=== PATIENT | female | born 1985 | race Caucasian/White ===

== ENCOUNTER 2016-12-11 20:01 | Inpatient (IN) | payer OTHER ==
[~2016-12-11 20:01] MED LIST: Bupivacaine 0.25% 10 ML SDV ONE
[2016-12-11] MEDS ORDERED: Nalbuphine 20 MG/1 ML Amp IVPUSH PRN (20:36)
[2016-12-11] MEDS ORDERED: Sodium Chloride 0.9% 10 ML Syringe FLUSH PRN (20:36)
[2016-12-11] MEDS ORDERED: Ondansetron 4 MG/2 ML SDV IVPUSH PRN ×2 (20:36→21:51)
[2016-12-11] MEDS ORDERED: Oxytocin/Lactated Ringers 10 UNIT/1,000 ML BAG IV SCH ×2 (20:45)
--- NOTE | 2016-12-11 21:39 | PCM.LDHP ---
L&D History of Present Illness - General Date of Service: 12/11/16 Admit Problem/Dx: Patient Status Order with Admit Dx/Problem 12/11/16 20:36 Patient Status [ADT] Routine Admission Diagnosis/Problem Admission Diagnosis/Problem with one fetus in third trimester Source of Information: Patient, Other History Limitations: Reports: No Limitations - History of Present Illness Introduction:: History of present illness: Patient is a 31-year-old 3 para 2001 white female at 40 and 3/7 weeks with an estimated due date of 12/08/2016 presenting for induction of labor. course: Initial visit occurred on 05/17/16 at 10-5 weeks gestation. Last menstrual period, initial ultrasound, and 20-week ultrasound all support an BRITNEY of 12/08/2016 based on patient's LMP. The was complicated by rotator cuff injury due to working out which she saw PT for, early tension headaches, and round ligament pain. 20-week ultrasound showed normal growth and anatomy. Received TDAP 10/10/16. Fundal height growth has been consistent. Pre- weight was 156 lbs, and current weight is 199, a gain of 43 lbs. 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 Menarche onset age 11. Period frequency monthly every 28-30 days. Last menstrual period 03/03/2016 and definite. First resulted in a at 40 weeks on 06/25/12 of a 7 lbs 3 oz female named Judie. Second resulted in a at 40 weeks on 01/26/14 of a 7 lbs 4 oz female named Maliha. Both labors lasted 12 hours, and epidurals were used both times. No complications were associated with either . Labs: Initial labs showed blood type O positive, with a negative antibody screen. HGB was 13.3 and platelets were 184,000. Pap smear was negative. She is rubella immune and RPR nonreactive. Urine culture/screen showed mixed thalia suggestive of contamination. Hepatitis B surface antigen and HIV assays were both negative. Second trimester labs showed a HGB of 12.7 and platelet count of 155,000. One hour GTT performed was at 126. Group B strep screen is negative. Past medical history: 1. Varicosities bilateral legs 2. Anxiety and depression with both pregnancies 3. Seasonal allergies Past surgical history: 1. Oral surgery 2004 2. Breast augmentation 2010 Family history: Mother and father alive and well. Father has colon polyps. One brother alive and well, but has diverticulitis. No bleeding, clotting, or problems in the family. Social history: Lives in [place], [place]. 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 to [employer]. No alcohol, tobacco, or illicit drug use during . Allergies: 1. Penicillins - rash 2. Ceclor - rash 3. Bactrim - rash 4. Augmentin - rash 5. Lactose intolerant Medications: 1. Tylenol 2. Multivitamin 3. Claritin - seasonal allergies Review of systems: HEENT: no headaches or blurry vision Cardiovascular: no chest pain Respiratory: no shortness of breath Abdomen: occasional contractions, no abdominal pain Extremities: no swelling Physical exam: Well-appearing, well-nourished, and in no acute distress VS: Clinic vitals showed a fundal height of 38 cm with vertex presentation, BP 114/75, FHR 125, height 5'10", weight 199. HEENT: no lymphadenopathy, normocephalic, atraumatic Back: nontender to palpation Cardiovascular: regular rate and rhythm, no murmurs Respiratory: clear to auscultation Breast: deferred Abdomen: protuberant with , nontender Extremities and neurological: no distal edema, no tenderness Cervix: 2+/80%/-3 station - Related Data Allergies/Adverse Reactions: Allergies Allergy/AdvReac Type Severity Reaction Status Date / Time amoxicillin trihydrate Allergy Hives Verified 01/25/14 07:19 [From Augmentin] cefaclor [From Ceclor] Allergy Hives Verified 01/25/14 07:19 Penicillins Allergy Hives Verified 01/25/14 07:19 potassium clavulanate Allergy Hives Verified 01/25/14 07:19 [From Augmentin] sulfamethoxazole Allergy Hives Verified 01/25/14 07:19 [From Bactrim] trimethoprim [From Bactrim] Allergy Hives Verified 01/25/14 07:19 Home Medications: Home Meds Vit No.130/Iron/FA [ Tablet] 1 each PO DAILY 01/25/14 [History] Acetaminophen [Tylenol] 650 mg PO Q6H PRN #30 tablet 01/28/14 [Rx] Docusate Sodium [Colace] 100 mg PO BID PRN #20 cap 01/28/14 [Rx] Ibuprofen [Motrin] 600 mg PO Q4H PRN #30 tablet 01/28/14 [Rx] Lanolin [Lansinoh HPA] 1 applic TOP ASDIRECTED PRN #30 crm 01/28/14 [Rx] Social & Family History - Tobacco Use Smoking Status *Q: Never Smoker Second Hand Smoke Exposure: No - Alcohol Use Days Per Week of Alcohol Use: 0 - Recreational Drug Use Recreational Drug Use: No H&P Review of Systems - Review of Systems: Review Of Systems: See Below L&D Exam - Exam Exam: See Below - Patient Data Result Diagrams: 12/11/16 21:00 - Problem List (1) 40 weeks gestation of SNOMED Code(s): 92745231 ICD Code: Z3A.40 - 40 WEEKS GESTATION OF Status: Acute Current Visit: Yes Problem List Initiated/Reviewed/Updated: Yes Orders Last 24hrs: Active Orders 24 hr Category Date Time Status Patient Status [ADT] Routine ADT 12/11/16 20:36 Active Activity as Tolerated [RC] PFP Care 12/11/16 20:36 Active Communication Order [RC] ASDIRECTED Care 12/11/16 20:36 Active Heart Tones [RC] ASDIRECTED Care 12/11/16 20:37 Active Notify Provider [RC] PFP Care 12/11/16 20:36 Active Notify Provider [RC] PRN Care 12/11/16 20:36 Active Peripheral IV Care [RC] . DIRECTED Care 12/11/16 20:37 Active Vital Signs [RC] PER UNIT ROUTINE Care 12/11/16 20:36 Active CBC WITH AUTO DIFF [HEME] Routine Lab 12/11/16 21:00 Received TYPE AND SCREEN [BBK] Routine Lab 12/11/16 21:00 Received Lactated Ringers [Ringers, Lactated] 1,000 ml Med 12/11/16 20:45 Active IV ASDIRECTED Nalbuphine [Nubain] Med 12/11/16 20:36 Active 10 mg IVPUSH Q2H PRN Ondansetron [Zofran] Med 12/11/16 20:36 Active 4 mg IVPUSH Q4H PRN Oxytocin/Lactated Ringers [Pitocin in LR 10 Units/1,000 Med 12/11/16 20:45 Active ML] 10 unit in 1,000 ml IV .CONTINUOUS Oxytocin/Lactated Ringers [Pitocin in LR 10 Units/1,000 Med 12/11/16 20:45 Active ML] 10 unit in 1,000 ml IV TITRATE Sodium Chloride 0.9% [Saline Flush] Med 12/11/16 20:36 Active 10 ml FLUSH ASDIRECTED PRN Electronic Heart Tones Ext w TOCO [WOMSER] Ot 12/11/16 20:36 Ordered Routine Electronic Heart Tones Internal [WOMSER] Per Unit Ot 12/11/16 20:36 Ordered Routine Peripheral IV Insertion Adult [OM.PC] Routine Oth 12/11/16 20:36 Ordered Resuscitation Status Routine Resus Stat 12/11/16 20:36 Ordered Medication Orders Lactated Ringer's (Ringers, Lactated) 1,000 mls @ 100 mls/hr IV ASDIRECTED GASTON Oxytocin/Lactated Ringer's (Pitocin In Lr 10 Units/1,000 Ml) 10 unit in 1,000 mls @ 12 mls/hr IV TITRATE GASTON; 2 MUNITS/MIN PRN Reason: Protocol Oxytocin/Lactated Ringer's (Pitocin In Lr 10 Units/1,000 Ml) 10 unit in 1,000 mls @ 500 mls/hr IV .CONTINUOUS GASTON Nalbuphine HCl (Nubain) 10 mg IVPUSH Q2H PRN PRN Reason: Pain (moderate 4-6) Ondansetron HCl (Zofran) 4 mg IVPUSH Q4H PRN PRN Reason: Nausea/Vomiting Sodium Chloride (Saline Flush) 10 ml FLUSH ASDIRECTED PRN PRN Reason: Keep Vein Open Assessment/Plan Comment:: Assessment: 1. 31-year-old with an BRITNEY of 12/08/16 placing her at 40 and 3/7 weeks presenting for induction of labor. 2. Group B strep negative Plan: 1. Induction of labor with pitocin 2. AROM performed 3. Epidural prn 4. Plans to attempt to nurse
[2016-12-11] MEDS ORDERED: fentaNYL 100 MCG/2 ML SDV EPIDUR PRN (21:51)
[2016-12-11] MEDS ORDERED: ePHEDrine 50 MG/ML SDV IVPUSH PRN (21:51)
--- NOTE | 2016-12-11 21:54 | PCM.PREANE ---
Preanesthetic Assessment - Anesthesia/Transfusion/Family Hx Anesthesia History: Prior Anesthesia Without Reaction Family History of Anesthesia Reaction: No Transfusion History: No Prior Transfusion(s) Intubation History: Unknown - Review of Systems General: No Symptoms Pulmonary: No Symptoms Cardiovascular: No Symptoms Gastrointestinal: No Symptoms Neurological: No Symptoms (CTS with /L4 herniated disk back injury noted: prior epidurals right side gets more numb.) Other: Reports: Easy Bruising, Sinus Problem (seasonal allergies), Depression, Anxiety - Physical Assessment NPO Status Date: 12/11/16 NPO Status Time: 18:30 Pulse: 68 O2 Sat by Pulse Oximetry: 99 Respiratory Rate: 14 Blood Pressure: 145/71 Temperature: 37.4 C Height: 1.78 m Weight: 89.811 kg ASA Class: 2 Mental Status: Alert & Oriented x3 Airway Class: Mallampati = 2 Dentition: Reports: Normal Dentition, Caries Thyro-Mental Finger Breadths: 3 Mouth Opening Finger Breadths: 3 ROM/Head Extension: Full Lungs: Clear to Auscultation, Normal Respiratory Effort Cardiovascular: Regular Rate, Regular Rhythm, No Murmurs - Lab Values: Laboratory Last Values WBC 8.00 K/mm3 (3.98-10.04) 12/11/16 21:00 RBC 3.57 M/mm3 (3.98-5.22) L 12/11/16 21:00 Hgb 11.1 gm/L (11.2-15.7) L 12/11/16 21:00 Hct 30.8 % (34.1-44.9) L 12/11/16 21:00 MCV 86.3 fl (79.4-94.8) 12/11/16 21:00 MCH 31.1 pg (25.6-32.2) 12/11/16 21:00 MCHC 36.0 g/dl (32.2-35.5) H 12/11/16 21:00 RDW Std Deviation 39.1 fL (36.4-46.3) 12/11/16 21:00 Plt Count 157 K/mm3 (182-369) L 12/11/16 21:00 MPV 10.0 fl (9.4-12.3) 12/11/16 21:00 Neut % (Auto) 68.1 % (34.0-71.1) 12/11/16 21:00 Lymph % (Auto) 21.4 % (19.3-51.7) 12/11/16 21:00 Delta % (Auto) 9.1 % (4.7-12.5) 12/11/16 21:00 Eos % (Auto) 0.9 (0.7-5.8) 12/11/16 21:00 Baso % (Auto) 0.1 % (0.1-1.2) 12/11/16 21:00 Neut # (Auto) 5.45 K/mm3 (1.56-6.13) 12/11/16 21:00 Lymph # (Auto) 1.71 K/mm3 (1.18-3.74) 12/11/16 21:00 Delta # (Auto) 0.73 K/mm3 (0.24-0.36) H 12/11/16 21:00 Eos # (Auto) 0.07 K/mm3 (0.04-0.36) 12/11/16 21:00 Baso # (Auto) 0.01 K/mm3 (0.01-0.08) 12/11/16 21:00 Above labs reviewed and noted. - Allergies Allergies/Adverse Reactions: Allergies Allergy/AdvReac Type Severity Reaction Status Date / Time amoxicillin trihydrate Allergy Hives Verified 01/25/14 07:19 [From Augmentin] cefaclor [From Ceclor] Allergy Hives Verified 01/25/14 07:19 Penicillins Allergy Hives Verified 01/25/14 07:19 potassium clavulanate Allergy Hives Verified 01/25/14 07:19 [From Augmentin] sulfamethoxazole Allergy Hives Verified 01/25/14 07:19 [From Bactrim] trimethoprim [From Bactrim] Allergy Hives Verified 01/25/14 07:19 - Anesthesia Plan Pre-Op Medication Ordered: None - Acknowledgements Anesthesia Type Planned: Epidural Pt an Appropriate Candidate for the Planned Anesthesia: Yes Alternatives and Risks of Anesthesia Discussed w Pt/Guardian: Yes Pt/Guardian Understands and Agrees with Anesthesia Plan: Yes PreAnesthesia Questionnaire - SUBSTANCE USE Smoking Status *Q: Never Smoker Second Hand Smoke Exposure: No Days Per Week of Alcohol Use: 0 Recreational Drug Use History: No - HOME MEDS Home Medications: Home Meds Vit No.130/Iron/FA [ Tablet] 1 each PO DAILY 01/25/14 [History] Acetaminophen [Tylenol] 650 mg PO Q6H PRN #30 tablet 01/28/14 [Rx] Docusate Sodium [Colace] 100 mg PO BID PRN #20 cap 01/28/14 [Rx] Ibuprofen [Motrin] 600 mg PO Q4H PRN #30 tablet 01/28/14 [Rx] Lanolin [Lansinoh HPA] 1 applic TOP ASDIRECTED PRN #30 crm 01/28/14 [Rx] - CURRENT (IN HOUSE) MEDS Current Meds: Current Medications Lactated Ringer's (Ringers, Lactated) 1,000 mls @ 100 mls/hr IV ASDIRECTED GASTON Oxytocin/Lactated Ringer's (Pitocin In Lr 10 Units/1,000 Ml) 10 unit in 1,000 mls @ 12 mls/hr IV TITRATE GASTON; 2 MUNITS/MIN PRN Reason: Protocol Oxytocin/Lactated Ringer's (Pitocin In Lr 10 Units/1,000 Ml) 10 unit in 1,000 mls @ 500 mls/hr IV .CONTINUOUS GASTON Nalbuphine HCl (Nubain) 10 mg IVPUSH Q2H PRN PRN Reason: Pain (moderate 4-6) Ondansetron HCl (Zofran) 4 mg IVPUSH Q4H PRN PRN Reason: Nausea/Vomiting Sodium Chloride (Saline Flush) 10 ml FLUSH ASDIRECTED PRN PRN Reason: Keep Vein Open
[2016-12-11] MEDS ORDERED: Bupivacaine/fentaNYL/NS 100 ML Bag EPIDUR SCH (22:00)
[2016-12-11] MEDS: Lactated Ringers 1,000 ML IV SCH ×2 (22:35→23:13)
[2016-12-12] MEDS: Lactated Ringers 1,000 ML IV SCH (05:44)
[2016-12-12] MEDS ORDERED: Acetaminophen 325 MG Tab PO PRN ×2 (05:53→08:41)
--- NOTE | 2016-12-12 07:57 | PCM.SN ---
- Free Text/Narrative Note: Marli is a 31-year-old 3 now para 3003 white female who was admitted last evening for elective induction of labor at 40-2/7 weeks gestational age. She was induced with artificial rupture membranes and augmented with Pitocin later during the course of the night. She slowly progressed to complete cervical dilation by just a little after 0700 hours on 2016. She pushed for 3 contractions and delivered a viable, pemberton, intrauterine female in a left occiput anterior position at 0731 hrs. The baby weighed 3510 g (7 lbs. 12 oz.) and had Apgars of 6 and 9. The patient had superficial abrasions medial aspect of labia minora bilaterally in the clitoral area. These were not bleeding and there was no anatomical distortion. No sutures were placed. The umbilical cord was moderately tight around the baby's neck. Baby delivered with cord around the neck. Baby was placed on mom's abdomen and suctioned. Cord was clamped 2 and cut. Cord was obtained. Patient had an epidural in place for analgesia. Placenta delivered in a Benjamin presentation, spontaneously, appeared intact and complete. Placenta delivered at 0736 hrs. Pitocin was started IV after delivery to facilitate increase in uterine tone and decrease bleeding. Estimated blood loss 100 mL. Patient plans to nurse. Condition: Good
[2016-12-12] MEDS ORDERED: Benzocaine/Menthol 20%-0.5% Spray 56 GM Canister TOP PRN (08:41)
[2016-12-12] MEDS ORDERED: Witch Hazel Medicated Pads 100/Jar TOP PRN (08:41)
[2016-12-12] MEDS ORDERED: Lanolin 100% Cream 7 GM Tube TOP PRN (08:41)
[2016-12-12] MEDS ORDERED: Docusate Sodium 100 MG Cap PO PRN (08:41)
[2016-12-12] MEDS: Ibuprofen 600 MG Tab PO PRN ×2 (12:08→17:38)
--- NOTE | 2016-12-12 12:20 | PCM48HPAN ---
Post Anesthesia Note - EVALUATION WITHIN 48HRS OF ANESTHETIC Vital Signs in Normal Range: Yes Patient Participated in Evaluation: Yes Respiratory Function Stable: Yes Airway Patent: Yes Cardiovascular Function Stable: Yes Hydration Status Stable: Yes Pain Control Satisfactory: Yes Nausea and Vomiting Control Satisfactory: Yes Mental Status Recovered: Yes
[2016-12-13] MEDS: Ibuprofen 600 MG Tab PO PRN ×2 (01:30→08:39)
[2016-12-13] MEDS: Prenatal Multivitamin with Calcium/Folic Acid/Iron Tab PO SCH ×2 (08:38→15:15)
--- NOTE | 2016-12-13 10:13 | PCM.SN ---
- Free Text/Narrative Note: Note: Subjective: - Small amount of lochia - Is voiding and walking - No further concerns Objective - Vitals: afebrile, BP 136/61 - Labs: HGB 10.7, Plt 131,000 - Uterus firm and nontender, located below umbilicus - Legs nontender with minimal to no edema Assessment: - 31-year-old 3 now Para 3003 s/p after induction of labor who is doing well. PPD #1. - Currently bottle feeding Plan: - Routine care - Would like to be discharged later today
--- NOTE | 2016-12-13 14:14 | PCM.DCSUM1 ---
Discharge Summary - Hospital Course Free Text/Narrative:: Marli is a 31-year-old 3 now para 3003 white female who was admitted last evening for elective induction of labor at 40-2/7 weeks gestational age. She was induced with artificial rupture membranes and augmented with Pitocin later during the course of the night. She slowly progressed to complete cervical dilation by just a little after 0700 hours on 2016. She pushed for 3 contractions and delivered a viable, pemberton, intrauterine female in a left occiput anterior position at 0731 hrs. The baby weighed 3510 g (7 lbs. 12 oz.) and had Apgars of 6 and 9. The patient had superficial abrasions medial aspect of labia minora bilaterally in the clitoral area. These were not bleeding and there was no anatomical distortion. No sutures were placed. The umbilical cord was moderately tight around the baby's neck. Baby delivered with cord around the neck. Baby was placed on mom's abdomen and suctioned. Cord was clamped 2 and cut. Cord was obtained. Patient had an epidural in place for analgesia. Placenta delivered in a Benjamin presentation, spontaneously, appeared intact and complete. Placenta delivered at 0736 hrs. Pitocin was started IV after delivery to facilitate increase in uterine tone and decrease bleeding. Estimated blood loss 100 mL. Patient plans to bottlefeed. no concerns. - Discharge Data Discharge Date: 12/13/16 Discharge Disposition: Home, Self-Care 01 Condition: Good - Patient Instructions Diet: Regular Diet as Tolerated Activity: As Tolerated (no intercourse or tampons till bleeding stops), Elevate Extremity Driving: May Drive Today Showering/Bathing: May Shower (or bathe) Notify Provider of: Fever, Increased Pain, Swelling and Redness, Nausea and/or Vomiting - Discharge Plan Home Medications: Home Meds Vit No.130/Iron/FA [ Tablet] 1 each PO DAILY 01/25/14 [History] Acetaminophen [Tylenol] 650 mg PO Q6H PRN #30 tablet 01/28/14 [Rx] Docusate Sodium [Colace] 100 mg PO BID PRN #20 cap 01/28/14 [Rx] Ibuprofen [Motrin] 600 mg PO Q4H PRN #30 tablet 01/28/14 [Rx] Lanolin [Lansinoh HPA] 1 applic TOP ASDIRECTED PRN #30 crm 01/28/14 [Rx] Referrals: Nithin Louise MD [Primary Care Provider] - (RTC 6 weeks-TFA) - Discharge Summary/Plan Comment DC Time >30 min.: No Discharge Summary/Plan Comment: 1. home today 2. regular diet 3. routine precautions. 4. RTC 6 weeks.-TFA Dx: 40 week pg-delivered Condition: good - Patient Data Vitals - Most Recent: Last Vital Signs Temp 36.7 C 12/13/16 05:13 Pulse 64 12/13/16 05:13 Resp 16 12/13/16 05:13 BP 136/61 12/13/16 05:13 Pulse Ox 96 12/13/16 05:13 Weight - Most Recent: 89.811 kg I&O - Last 24 hours: Intake & Output 12/12/16 12/13/16 12/13/16 22:59 06:59 14:59 Intake Total 0 180 Balance 0 180 Lab Results - Last 24 hrs: Laboratory Results - last 24 hr 12/13/16 Range/Units 05:39 WBC 8.73 (3.98-10.04) K/mm3 RBC 3.47 L (3.98-5.22) M/mm3 Hgb 10.7 L (11.2-15.7) gm/L Hct 30.5 L (34.1-44.9) % MCV 87.9 (79.4-94.8) fl MCH 30.8 (25.6-32.2) pg MCHC 35.1 (32.2-35.5) g/dl RDW Std Deviation 40.2 (36.4-46.3) fL Plt Count 131 L (182-369) K/mm3 MPV 10.3 (9.4-12.3) fl Med Orders - Current: Current Medications Acetaminophen (Tylenol) 650 mg PO Q4H PRN PRN Reason: mild pain or fever Benzocaine/Menthol (Dermoplast Pain Relief Zamora) 0 gm TOP ASDIRECTED PRN PRN Reason: Perineal Comfort Measure Last Admin: 12/12/16 10:03 Dose: 1 can Docusate Sodium (Colace) 100 mg PO BID PRN PRN Reason: Constipation Emollient Ointment (Lansinoh Hpa) 0 gm TOP ASDIRECTED PRN PRN Reason: Sore Nipples Ibuprofen (Motrin) 600 mg PO Q4H PRN PRN Reason: Mild pain or fever Last Admin: 12/13/16 08:39 Dose: 600 mg Prenat Multivit/Software Maintenance Engineer/Iron/Folic Ac ( Plus Iron) 1 each PO DAILY GASTON Last Admin: 12/13/16 08:38 Dose: 1 each Witch Asha (Tucks) 1 pad TOP ASDIRECTED PRN PRN Reason: Hemorrhoid pain Last Admin: 12/12/16 10:02 Dose: 1 box Discontinued Medications Acetaminophen (Tylenol) 650 mg PO Q4H PRN PRN Reason: Headache Last Admin: 12/12/16 05:59 Dose: 650 mg Ephedrine Sulfate (Ephedrine Sulfate) 5 mg IVPUSH ASDIRECTED PRN PRN Reason: Hypotension Fentanyl (Sublimaze) 100 mcg EPIDUR Q3H PRN PRN Reason: Pain Last Admin: 12/11/16 22:47 Dose: 100 mcg Fentanyl/Bupivacaine HCl (Fentanyl/Bupivacaine/Ns 2 Mcg-0.125% 100 Ml) 100 ml EPIDUR ASDIRECTED GASTON Last Admin: 12/11/16 22:47 Dose: 100 ml Lactated Ringer's (Ringers, Lactated) 1,000 mls @ 100 mls/hr IV ASDIRECTED GASTON Last Admin: 12/12/16 05:44 Dose: 100 mls/hr Oxytocin/Lactated Ringer's (Pitocin In Lr 10 Units/1,000 Ml) 10 unit in 1,000 mls @ 12 mls/hr IV TITRATE GASTON; 2 MUNITS/MIN PRN Reason: Protocol Last Titration: 12/12/16 07:08 Dose: 0 munits/min, 0 mls/hr Oxytocin/Lactated Ringer's (Pitocin In Lr 10 Units/1,000 Ml) 10 unit in 1,000 mls @ 500 mls/hr IV .CONTINUOUS GASTON Nalbuphine HCl (Nubain) 10 mg IVPUSH Q2H PRN PRN Reason: Pain (moderate 4-6) Ondansetron HCl (Zofran) 4 mg IVPUSH Q4H PRN PRN Reason: Nausea/Vomiting Ondansetron HCl (Zofran) 4 mg IVPUSH ONETIME PRN PRN Reason: Nausea/Vomiting Sodium Chloride (Saline Flush) 10 ml FLUSH ASDIRECTED PRN PRN Reason: Keep Vein Open *Q Meaningful Use (DIS) - VTE *Q VTE Criteria *Q: - Stroke *Q Stroke Criteria *Q: - AMI *Q AMI Criteria *Q:
[2016-12-13 15:13] VITALS: BP 130/66
== END 2016-12-13 15:09 | disposition home or self-care (01) | DRG 775 ==
LOC: JD.OB 20:01 → OBSVTOIN 12-12 07:31 → JD.MS 12-12 07:31 → JD.OB 12-12 11:40
PROVIDERS: ADMIT Obstetrics & Gynecology; ATTEND Obstetrics & Gynecology
PROC: 10E0XZZ Delivery of Products of Conception, External Approach (ICD-10-PCS; principal; 2016-12-12)
PROC: 3E033VJ Introduction of Other Hormone into Peripheral Vein, Percutaneous Approach (ICD-10-PCS; 2016-12-12)
PROC: 10907ZC Drainage of Amniotic Fluid, Therapeutic from Products of Conception, Via Natural or Artificial Opening (ICD-10-PCS; 2016-12-12)
PROC: 00HU33Z Insertion of Infusion Device into Spinal Canal, Percutaneous Approach (ICD-10-PCS; 2016-12-12)
PROC: 3E0R3CZ (ICD-10-PCS; 2016-12-12)
DX: O48.0 Post-term pregnancy (principal); O69.81X0 Labor and delivery complicated by cord around neck, without compression, not applicable or unspecified; O99.52 Diseases of the respiratory system complicating childbirth; J30.2 Other seasonal allergic rhinitis; Z3A.40 40 weeks gestation of pregnancy; Z37.0 Single live birth; Z88.0 Allergy status to penicillin; Z88.1 Allergy status to other antibiotic agents; E73.9 Lactose intolerance, unspecified
CPT/HCPCS: 36415; 59409; 85025; 85027; 86850; 86900; 86901; A9270-GY; J2590; J3010; J7120